=== PATIENT | female | born 1985 | race Caucasian/White ===

== ENCOUNTER 2020-12-25 09:59 | Day surgery (SDC) | payer OTHER ==
--- NOTE | 2020-12-25 09:01 | HP ---
DATE OF SURGERY: 12/25/2020 HISTORY OF PRESENT ILLNESS: The patient is a 35 year-old with ultrasound showing fatty gallstones, fatty infiltration in the liver. Ejection fraction 18%. She had episode of nausea the patient related to some other treatments. She denies any prior abdominal surgery. PAST MEDICAL HISTORY: Diabetes. PAST SURGICAL HISTORY: Denies any prior abdominal surgery. MEDICATIONS: Metformin, January. She took Trulicity in the past but stopped as she had some change in her liver tests in the past. ALLERGIES: IBUPROFEN. FAMILY HISTORY: Lung cancer. Diabetes. SOCIAL HISTORY: Denies smoking or alcohol abuse. REVIEW OF SYSTEMS: Fourteen systems reviewed. No chest pain or palpitations. Other systems negative or noncontributory as above and per preadmission questionnaire. PHYSICAL EXAMINATION: GENERAL: No acute distress. HEENT: Sclerae nonicteric. NECK: No JVD. CHEST: Equal excursion, nonlabored breathing. CVS: Regular rate and rhythm. ABDOMEN: Soft. No peritoneal signs. EXTREMITIES: No significant edema. NEURO: Alert, oriented, moving extremities symmetrically. PSYCH: Appropriate mood and affect. IMPRESSION: History of some fatty gallstones on ultrasound as well as high ejection fraction of 18%. I feel the patient has acute exacerbation of chronic cholecystitis, cholelithiasis and dyskinesia. I feel the patient will benefit from cholecystectomy. Shown the gallbladder pamphlet and risk sheet, explained the procedure in detail including but not limited to bleeding or infection, risk of trocar injury or hernia, risk of bowel, bladder or blood vessel injury, risk of bile leak, bile duct injury, retained stone or sludge possibly requiring further procedure either open or ERCP, general risk of anesthesia, deep venous thrombosis, pulmonary embolism, pneumonia, perioperative risk of aches, pains, bloating, constipation and/or loose stools possibly even chronic in nature, possibility the procedure may not improve her symptoms. She may need further work up and/or testing. She understands and agrees to the planned procedure, will proceed with laparoscopic cholecystectomy with possible open as an outpatient.
[~2020-12-25 09:59] MED LIST: Lactated Ringers 1,000 ML IV ONE; Lactated Ringers 1,000 ML IV SCH; MEFOXIN 2 GM PREMIX** 2 GM/50 ML ML IV ONE; MEFOXIN 2 GM PREMIX** 2 GM/50 ML ML IV SCH; Sensorcaine 0.25% 10 ML ONE
[2020-12-25] MEDS ORDERED: Decadron 4 MG INJ ONE (11:51)
[2020-12-25] MEDS ORDERED: SUBLIMAZE 100 MCG/2 ML ONE ×2 (11:51→12:50)
[2020-12-25] MEDS ORDERED: Zemuron 100 MG/10 ML ONE (11:51)
[2020-12-25] MEDS ORDERED: TORAdol 30 mg Injection ONE (11:51)
[2020-12-25] MEDS ORDERED: Xylocaine-Mpf 2% 5 Ml Vial ONE (11:51)
[2020-12-25] MEDS ORDERED: Zofran 4 MG/2 ML VIAL ONE (11:51)
[2020-12-25] MEDS ORDERED: BRIDION 200MG/2ML IV ONE (11:51)
[2020-12-25] MEDS ORDERED: DIPRIVAN 200 MG/20 ML IV ONE (11:58)
[2020-12-25] MEDS ORDERED: Ephedrine Sulfate 50 MG/ML ONE (12:24)
[2020-12-25 14:37] VITALS: BP 118/74; PULSE 89; O2SAT 97
--- NOTE | 2020-12-26 11:16 | OP ---
SURGERY DATE/TIME: 12/25/2020 1201 PREOPERATIVE DIAGNOSIS: Acute exacerbation of chronic cholecystitis, symptomatic biliary dyskinesia. POSTOPERATIVE DIAGNOSIS: Acute exacerbation of chronic cholecystitis, symptomatic biliary dyskinesia. PROCEDURE: Laparoscopic cholecystectomy. SURGEON: Dr. Ray De. ANESTHESIA: General. ESTIMATED BLOOD LOSS: Minimal. INDICATIONS: As noted above. Risks and benefits explained in detail but not limited to and consent obtained. DESCRIPTION OF PROCEDURE AND FINDINGS: The patient was taken to the operating room. General anesthesia induced. Abdomen prepped and draped in the usual sterile fashion. After official time out and no disagreement with planned procedure, a transverse incision made at the supraumbilical area. Fascia grasped and pulled upward. Veress needle inserted and tested with saline. Pneumoperitoneum accomplished insufflating opening pressure of 0-15. An 11 mm bladeless port and camera inserted without difficulty followed by two - 5 mm right upper quadrant ports and 5 mm epigastric port. There was no evidence of any intra-abdominal injury secondary to trocar insertion. Gallbladder grasped retracted over the edge of the fatty infiltrated liver. There is some mild chronic inflammatory reaction. Dissection carried posterior, lateral to anterior fashion. Slowly and carefully cystic duct and infundibular area and main cystic artery isolated until the critical view obtained anteriorly and posteriorly. Once this is accomplished cystic duct and cystic artery clipped x3 and divided in the usual fashion. Gallbladder slowly and carefully dissected free from its dense attachment to liver bed, clipping additional oozing side branches off the cystic artery and cystic vein anterior edge of the liver. Gallbladder released from final attachments to anterior edge of the liver. Liver bed re-inspected. Clips noted to be in place cystic duct and cystic artery stumps. No signs of any active bleeding or bile leakage. It was felt there was no benefit from drain placement. Gallbladder released from final attachments anterior edge of the liver. An extra clip is placed on the artery side on the gallbladder. It was removed. Gallbladder is then grasped, pulled up and out the 10/11 port site supraumbilical area and passed off. The fascial defect closed with puncture closure device under direct vision of the camera with #1 Vicryl. Pneumoperitoneum decompressed. The wound irrigated out. Skin incision closed with 4-0 Vicryl. 0.25% Marcaine local injected along the skin incision fascial defect. The patient tolerated the procedure well. Findings discussed with the family out in the waiting area.
== END 2020-12-25 14:15 | disposition home or self-care (01) ==
LOC: SDC 09:59
PROVIDERS: ATTEND Surgery
DX: K81.0 Acute cholecystitis (principal); K82.8 Other specified diseases of gallbladder; E11.9 Type 2 diabetes mellitus without complications; Z79.899 Other long term (current) drug therapy
CPT/HCPCS: 82947; 84703; 88304; J0694; J1100; J1885; J2405; J2704; J3010; L0625